=== PATIENT | female | born 1965 | race Caucasian/White ===

== ENCOUNTER 2020-12-03 07:47 | Day surgery (SDC) | payer OTHER ==
[~2020-12-03] VITALS: Ht 157.5 cm; Wt 90.3 kg
[2020-12-03] MEDS ORDERED: PROPOFOL 50 ML ONE (08:19)
[2020-12-03] MEDS ORDERED: CHLORHEXIDINE 15 ML UDC ONE (08:36)
[2020-12-03 08:37] VITALS: BP_SYST 116; BP_SYST 16; BP_DIAS 81
[2020-12-03] MEDS ORDERED: statin (08:48)
[2020-12-03] MEDS ORDERED: OMEP-110 PO (08:48)
[2020-12-03] MEDS ORDERED: albuterol inhaler (08:48)
[2020-12-03] MEDS ORDERED: CHLORHEXIDINE 15 ML UDC PO ONE (09:00)
[2020-12-03] MEDS ORDERED: LACTATED RINGERS 1,000 ML IV SCH (09:00)
[2020-12-03] MEDS ORDERED: ONDANSETRON 2MG/ML, 2ML IVPush PRN (09:30)
[2020-12-03] MEDS ORDERED: FENTANYL PF 100 MCG/2ML IV PRN (09:30)
== END 2020-12-03 10:35 | disposition home or self-care (01) ==
LOC: OUT 07:47
PROVIDERS: ATTEND Internal Medicine Geriatric Medicine
DX: D12.0 Benign neoplasm of cecum (principal); D12.4 Benign neoplasm of descending colon; J45.909 Unspecified asthma, uncomplicated; Z20.822 Contact with and (suspected) exposure to COVID-19
CPT/HCPCS: 45381; 45385; 87635; 88305; J2704; J7120